=== PATIENT | female | born 1930 | race Caucasian/White ===

== ENCOUNTER 2017-12-06 17:28 | Inpatient (IN) | payer OTHER, MEDICARE ==
[~2017-12-06] VITALS: Ht 162.6 cm; Wt 73.5 kg
[~2017-12-06 17:28] MED LIST: ADULT LOW DOSE81 MG PO; ALEVE220 MG PO; GERITOL COMPLE1 EACH PO; METOPROLOL SUC100 MG PO; OCUVITE TABLET1 EAC1 PO; OMEGA 3 FISH O1 EACH PO; PREDNISONE10 MG PO; VITAMIN D1000 UNI1 PO
--- OUTSIDE RECORDS SUMMARY | 2017-12-06 17:38 | XMS ---
Demographics + + + | Address | [address] | | | [address] | | | [place] [address] | + + + | Preferred Language | Unknown | + + + | Marital Status | Unknown | + + + | Amish Affiliation | Unknown | + + + | Race | Unknown | + + + | Ethnic Group | Unknown | + + + Author + + + | Author | [facility] | + + + | Organization | [facility] | + + + | Address | [address] | | | [place] [address] | + + + | Phone | | + + + Care Team Providers + + + + | Care Subgrade Roller Operator Name | Role | Phone | + + + + Unavailable | Unavailable | + + + + PROBLEMS + + + + + + + + | Type | Condition | ICD9-CM | [id number] | Onset | Condition | SNOMED | | | | Code | Code | Dates | Status | Code | + + + + + + + + | Problem | Hypertensi | I11.9 | | | Active | [id number] | | | ve | | | | | | | | arterioscl | | | | | | | | erotic | | | | | | | | cardiovasc | | | | | | | | ular | | | | | | | | disease | | | | | | + + + + + + + + | Problem | Hypertensi | | I10 | | Active | 30782980 | | | on | | | | | | + + + + + + + + | Problem | Carpal | G56.00 | | | Active | 81922464 | | | tunnel | | | | | | | | syndrome | | | | | | + + + + + + + + | Assessment | Blood in | K92.1 | | 16 February, | Active | [id number] | | | stool | | | 2017 | | | + + + + + + + + | Problem | Hyperchole | | E78.0 | | Active | 45292072 | | | sterolemia | | | | | | + + + + + + + + | Problem | Fatigue | | R53.83 | | Active | 64086174 | + + + + + + + + ALLERGIES + + + + +--------+ | Substance | Reaction | Event Type | Date | Status | + + + + +--------+ | Lisinipril | cough | Drug Allergy | February, | Active | + + + + +--------+ | Morphine | stomach hurts | Drug Allergy | February, | Active | | Sulfate | | | | | + + + + +--------+ | Meloxicam | hives | Drug Allergy | February, | Active | + + + + +--------+ | Lipitor | muscle ache | Drug Allergy | February, | Active | + + + + +--------+ | Hydrochlorothia | nausea | Drug Allergy | February, | Active | | zide | | | | | + + + + +--------+ | Fosamax | Nausea | Drug Allergy | February, | Active | + + + + +--------+ SOCIAL HISTORY No smoking Hx information available PLAN OF CARE + +---------+ | Activity | Details | + +---------+ +---+ | | +---+ + + + | Pending Test | CBC | + + + | | prn,Reason: | + + + VITAL SIGNS + + + + | Height | 64 in | 2017-03-07 | + + + + | Weight | 158.7 lbs | 2017-03-07 | + + + + | BMI | 27.24 kg/m2 | 2017-03-07 | + + + + | Temperature | 98.2 degrees Fahrenheit | 2017-03-07 | + + + + | Heart Rate | 77 /min | 2017-03-07 | + + + + | Blood pressure systolic | 149 mm Hg | 2017-03-07 | + + + + | Blood pressure diastolic | 58 mm Hg | 2017-03-07 | + + + + MEDICATIONS + + + + +--------+ + +--------+ | Medicati | Instruct | Dosage | Frequenc | Start | End Date | Duration | Status | | on | ions | | y | Date | | | | + + + + +--------+ + +--------+ | Metoprol | | TAKE 1 | | | | 90 | Active | | ol | | TABLET | | | | | | | Succinat | | BY MOUTH | | | | | | | e ER 100 | | EVERY | | | | | | | | | DAY | | | | | | + + + + +--------+ + +--------+ | Vitamin | Orally | 1 | 24h | | | | Active | | D 1000 | Once a | capsule | | | | | | | UNIT | day | | | | | | | + + + + +--------+ + +--------+ | Centrum | | | | | | | Active | | Silver | | | | | | | | | Adult | | | | | | | | | 50+ | | | | | | | | + + + + +--------+ + +--------+ | Krill | | | | | | | Active | | Oil | | | | | | | | | [place]-3 | | | | | | | | | 300 MG | | | | | | | | + + + + +--------+ + +--------+ | Ocuvite | | | | | | | Active | | Adult | | | | | | | | | 50+ | | | | | | | | + + + + +--------+ + +--------+ | Aspirin | Orally | 1 tablet | 24h | | | 30 | Active | | 81 MG | Once a | | | | | day(s) | | | | day | | | | | | | + + + + +--------+ + +--------+ RESULTS No Results PROCEDURES + + + + + | Procedure | Date Ordered | Related Diagnosis | Body Site | + + + + + | Office Visit, Est | March 07, 2017 | | | | Pt., Level 3 | | | | + + + + + IMMUNIZATIONS No Known Immunizations"
--- OUTSIDE RECORDS SUMMARY | 2017-12-06 17:38 | XMS ---
Demographics + + + | Address | [address] | | | [address] | | | [place] [address] | + + + | Preferred Language | Unknown | + + + | Marital Status | Unknown | + + + | Anglican Affiliation | Unknown | + + + | Race | Unknown | + + + | Ethnic Group | Unknown | + + + Author + + + | Author | [facility] | + + + | Organization | [facility] | + + + | Address | [address] | | | [place] [address] | + + + | Phone | | + + + Care Team Providers + + + + | Care Welder Name | Role | Phone | + + + + Unavailable | Unavailable | + + + + PROBLEMS +---------+ + + +--------+ + + | Type | Condition | ICD9-CM | [id number] | Onset | Condition | SNOMED | | | | Code | Code | Dates | Status | Code | +---------+ + + +--------+ + + | Problem | Hypertensi | I11.9 | | | Active | [id number] | | | ve | | | | | | | | arterioscl | | | | | | | | erotic | | | | | | | | cardiovasc | | | | | | | | ular | | | | | | | | disease | | | | | | +---------+ + + +--------+ + + | Problem | Hypertensi | | I10 | | Active | 71076973 | | | on | | | | | | +---------+ + + +--------+ + + | Problem | Carpal | G56.00 | | | Active | 49946737 | | | tunnel | | | | | | | | syndrome | | | | | | +---------+ + + +--------+ + + | Problem | Hyperchole | | E78.0 | | Active | 61286606 | | | sterolemia | | | | | | +---------+ + + +--------+ + + | Problem | Fatigue | | R53.83 | | Active | 41597460 | +---------+ + + +--------+ + + ALLERGIES Unknown Allergies SOCIAL HISTORY No smoking Hx information available PLAN OF CARE VITAL SIGNS MEDICATIONS Unknown Medications RESULTS No Results PROCEDURES No Known procedures IMMUNIZATIONS No Known Immunizations"
--- OUTSIDE RECORDS SUMMARY | 2017-12-06 17:38 | XMS ---
Demographics + + + | Address | [address] | | | [address] | | | [place] [address] | + + + | Preferred Language | Unknown | + + + | Marital Status | Unknown | + + + | Congregational Affiliation | Unknown | + + + | Race | Unknown | + + + | Ethnic Group | Unknown | + + + Author + + + | Author | [facility] | + + + | Organization | [facility] | + + + | Address | [address] | | | [place] [address] | + + + | Phone | | + + + Care Team Providers + + + + | Care Bag Making Machine Operator Name | Role | Phone | + + + + Unavailable | Unavailable | + + + + PROBLEMS +---------+ + + +--------+ + + | Type | Condition | ICD9-CM | [id number] | Onset | Condition | SNOMED | | | | Code | Code | Dates | Status | Code | +---------+ + + +--------+ + + | Problem | Hypertensi | I11.9 | | | Active | [id number] | | | ve | | | [...] | | I10 | | Active | 45031311 | | | on | | | | | | +---------+ + + +--------+ + + | Problem | Carpal | G56.00 | | | Active | 72099739 | | | tunnel | | | | | | | | syndrome | | | | | | +---------+ + + +--------+ + + | Problem | Hyperchole | | E78.0 | | Active | 52270305 | | | sterolemia | | | | | | +---------+ + + +--------+ + + | Problem | Fatigue | | R53.83 | | Active | 02680902 | +---------+ + + +--------+ + + ALLERGIES + + + + +--------+ | Substance | Reaction | Event Type | Date | Status | + + + + +--------+ | Lisinipril | cough | Drug Allergy | Jul, | Active | + + + + +--------+ | Morphine | stomach hurts | Drug Allergy | Jul, | Active | | Sulfate | | | | | + + + + +--------+ | Meloxicam | hives | Drug Allergy | Jul, | Active | + + + + +--------+ | Lipitor | muscle ache | Drug Allergy | Jul, | Active | + + + + +--------+ | Hydrochlorothia | nausea | Drug Allergy | Jul, | Active | | zide | | | | | + + + + +--------+ | Fosamax | Nausea | Drug Allergy | Jul, | Active | + + + + +--------+ SOCIAL HISTORY Never Assessed PLAN OF CARE + +---------+ | Activity | Details | + +---------+ +---+ | | +---+ + + + | Follow Up | 6 Months Reason:null | + + + VITAL SIGNS + + + + | Height | 64 in | 2017-07-25 | + + + + | Weight | 162.5 lbs | 2017-07-25 | + + + + | BMI | 27.89 kg/m2 | 2017-07-25 | + + + + | Heart Rate | 65 /min | 2017-07-25 | + + + + | Blood pressure systolic | 177 mm Hg | 2017-07-25 | + + + + | Blood pressure diastolic | 60 mm Hg | 2017-07-25 | + + + + MEDICATIONS + [...] | | | Active | | D 2000 | Once a | capsule | | [...] | TAKE 1 | | | | | Active | | ol | | [...] | | | | | | | [place]-3 | | | | | | | | | 300 MG | | | | | | | | + + + + +--------+ + +--------+ | Flexeril | | 1 tab(s) | | | | | Active | | 5 mg | | | | | | | | + + + + +--------+ + +--------+ RESULTS No Results PROCEDURES + + +--------+ + | Procedure | Date Ordered | Result | Body Site | + + +--------+ + | Influenza Medicare | Jul 25, 2017 | | | + + +--------+ + | ADMN FLU VAC | Jul 25, 2017 | | | + + +--------+ + IMMUNIZATIONS + + + + + | Vaccine | Route | Administration Date | Status | + + + + + | Influenza Medicare | IM Intramuscular | Jul 25, 2017 | Administered | + + + + + MEDICAL (GENERAL) HISTORY + + + + | Type | Description | Date | + + + + | Medical History | Allergies | | + + + + | Medical History | Arthritis | | + + + + | Medical History | 07/2009 ? | | + + + + | Medical History | Hypertension | | + + + + | Medical History | hx/o GERD | | + + + + | Medical History | Anxiety | | + + + + | Medical History | | | + + + + | Medical History | Vitamin D deficiency | | + + + + | Medical History | Spinal stenosis L4-5, | | | | moderate | | + + + + | Medical History | LBBB 2008 | | + + + + | Medical History | Osteopenia @ high risk of | | | | hip fx - fosamax started | | | | 02/11/13 - d/c'ed after 3 | | | | doses due to GI side | | | | effect. | | + + + + | Medical History | Macular degeneration | | + + + + | Medical History | Spinal Stenosis Lumbar | | | | region | | + + + + | Medical History | Estimated dietary calcium | | | | intake 1200mg/day 02/11/13 | | + + + + | Medical History | [place] general information | | | | handout and home safety | | | | questionnaire provided | | | | 02/11/13 - score 6 | | + + + + | Medical History | FRAX calculation: 10 yr | | | | probability of major | | | | osteoporotic fx 13%, hip fx | | | | 3.2% pt at high risk for | | | | hip fx 02/11/13 | | + + + + | Surgical History | Cholecystectomy | 1993 | + + + + | Surgical History | T&A | | + + + + | Surgical History | Colonoscopy | 2005 | + + + + | Surgical History | R carpal tunnel repaired | 07/2010 | + + + + | Surgical History | Mammogram | 10/10/14 | + + + + | Surgical History | Orthopedic consult, Dr Puckett | 09/26/11 | | | re:Lumbar radiculopathy | | + + + + | Surgical History | MRI Lumbar spine - L4-5 | 10/10/11 | | | moderate stenosis | | + + + + | Surgical History | DEXA femoral T-score -1.3 | 11/21/11 | + + + + | Surgical History | Eye exam | 05/2013 | + + + + | Surgical History | Cataract surgery b/l | 05/2014 | + + + + | Hospitalization History | [facility] dx: chest pain | 12/11- | + + + + | Hospitalization History | [facility] ER re: back pain | 03/29/16 | + + + +"
--- NOTE | 2017-12-06 21:06 | NUR ---
BP ELEVATED, PT PAIN INCREASED DURING THE TRANSFER FROM STRETCHER TO HOSP. BED. LOPRESSOR ORDERED BY DR. WHITE. IF PRESSURE CONTINUES TO BE ELEVATED, WILL NOTIFY DR. WHITE.
--- NOTE | 2017-12-06 21:13 | NUR ---
PT TRANSFERED FROM ED AT 2014, VIA STRETCHER TO ROOM 112. ALERT AND ORIENTATED. FELL OUT AT [employer], FX LEFT HIP. NPO AFTER MIDNIGHT, HAS TRAMMELL WITH LIGHT YELLOW URINE. PT ATE A SANDWICH, DRANK WATER, MILK AFTER SHE ARRIVED TO FLOOR. HAS UPPER DENTURES, GLASSES. MACULAR DEGENATION WORSE IN LEFT EYE THAN RIGHT. HAD AN "INJECTION" YESTERDAY [facility] FRIENDS IN ROOM WITH PT.
--- NOTE | 2017-12-06 21:40 | NUR ---
RESUMED PATIENT CARE FROM BANDAR ZEE RN. PATIENT REPOSITIONED IN BED FOR COMFORT. PATIENT IS REQUESTING PAIN MEDICATION FOR 8/10 LEFT HIP PAIN. PATIENT GIVEN PRN PAIN MEDICATION PER ORDER. PAIN MEDICATION DILUTED IN 20ML'S AND RAN ON THE PUMP OVER 5 MINUTES. PATIENT INTAKE ASSESMENT COMLETED. PATIENTS SON IS AT THE BEDSIDE. ALL QUESTIONS ANSWERED. PATIENT DENIES ANY NEEDS. PATIENT EDUCATED ON THE USE OF THE CALL LIGHT.
--- NOTE | 2017-12-06 22:10 | NUR ---
PATIENT CALLED AND HAD A BOUT OF EMESIS. PATIENT STATED "I JUST FELT LIKE I NEEDED TO BELCH". PATIENT DESCRIBES HER ABD PAIN AN "ACHE AND A TIGHT BAND". PATIENT GIVEN PRN ZOFRAN. PATIENT ALSO STATED "THIS IS HIM I FEEL IF I GET MORPHINE" PLACED A CALL TO DR. ANDERSON ABOUT PATIENTS EMESIS AND CONCERN FOR PAIN MEDICATION. NO NEW ORDERS AT THIS TIME. PATIENTS GOWN AND BEDDING CHANGED. PATIENT DID NOT TOLERATE ACTIVITY WELL. PATIENT GIVEN NEW EMESIS BAG. PATIENTS SON HAS LEFT. PATIENT HAS A COOL RAG ON HER HEAD.
--- NOTE | 2017-12-06 22:45 | NUR ---
PATIENT IS RESTING IN BED. ALL LIGHTS ARE OFF. SCDS APPLIED. PATIENT REFUSES TEDHOSE AT THIS TIME. PATIENT RATES PAIN AT A 4/10 AT THIS TIME. PATIENT STATED "MY STOMACH IS STARTING TO FEEL BETTER". ICE APPLIED TO LEFT HIP. NO FURTHER NEEDS NOTED.
--- NOTE | 2017-12-06 22:47 | NUR ---
HELPED JOSE MENDEZ CHANGE BED SATURATED WITH VOMIT. GAVE PT A COLD RAG, ICE FOR HER HIP, AND CHANGED HER GOWN. BEDSIDE TABLE AND CALL LIGHT WITHIN REACH.
--- NOTE | 2017-12-07 00:40 | NUR ---
PATIENT CALLED AND REQUESTED PAIN MEDICATION. PATIENT GIVEN PRN PAIN MEDICATION. PATIENT GIVEN IV DILAUDID AT 0.25ML, DILUTED IN 20ML'S OF NORMAL SALINE. PATIENTS PAIN MEDICATION RAN ON THE PUMP OVER 10MINUTES. PATIENT REPOSTIONED IN BED. PATIENT DENIES ANY NAUSEA AT THIS TIME. NO FURTHER NEEDS NOTED. CALL LIGHT IN REACH.
--- NOTE | 2017-12-07 00:54 | NUR ---
PATIENT IS RESTING IN BED WITH EYES CLOSED. RR17. CALL LIGHT IN REACH.
--- NOTE | 2017-12-07 01:37 | NUR ---
PATIENT CALLED AND REPORTED TO STAFF THAT SHE WAS FEELING "SICK TO HER STOMACH". PATIENT GIVEN PRN ZOFRAN PER ORDER. PATIENT DID HAVE ABOUT 10ML OF EMESIS. PATIENT RATES PAIN AT A 4/10. DENIES THE NEED FOR PAIN MEEDICATION AT THIS TIME. NO FURTHER NEEDS NOTED. CALL LIGHT IN REACH.
--- NOTE | 2017-12-07 01:45 | NUR ---
VITALS AND I&OS DONE AND CHARTED. BEDSIDE TABLE AND CALL LIGHT WITHIN REACH. PT NEEDS NOTHING ELSE AT THIS TIME.
--- NOTE | 2017-12-07 01:49 | NUR ---
PT BP 158/44, HAS BEEN MED FOR PAIN SINCE ADMISSION.
--- NOTE | 2017-12-07 02:33 | NUR ---
PATIENT PLACED ON PULSE OX AFTER RECEIVING PRN PAIN MECIATION. OXYGEN SATURATION IS 87%. PATIENT PLACED ON 1L VIA NC. PATIENT IS RESTING IN BED. PATIENT DENIES ANY NAUSEA. PATIENT RATES PAIN AT A 2/10 AND DENIES THE NEED FOR PAIN MEDICAITION AT THIS TIME.
--- NOTE | 2017-12-07 04:27 | NUR ---
PATIENT IS RESTING IN BED WITH EYES CLOSED. PULSE OX READINGS ARE WNL. CALL LIGHT IN REACH.
--- NOTE | 2017-12-07 05:10 | NUR ---
PATIENT RESTED DURING THE LATER PART OF THE SHIFT. PATIENT HAS BEEN NPO SINCE MIDNIGHT. PATIENT HAS SCDS ON RIGHT LEG ONLY, REFUSED TO WEAR ON ON HER LEFT LEG. PATIENT REFUSED TEDHOSE AT THIS TIME. PATIENT RECEIVED X2 PRN ZOFRAN FOR NAUSEA. PATIENT DID HAVE 2 EPISODES OF EMESIS RESULTING IN 75ML. PATIENT IS ON PULSE OX AND 1L VIA NC. PATIENT IS AAOX3 AND USES CALL LIGHT APPROPRIATELY.
--- NOTE | 2017-12-07 05:58 | NUR ---
PT IV PUMP ALARMING. PT AWAKE, DENIES NEED FOR PAIN MEDICATION, WELL NO NAUSEA. CALL LIGHT WITHIN REACH.
--- NOTE | 2017-12-07 06:01 | NUR ---
VITALS AND I&OS DONE AND CHARTED. FLUFFED PTS PILLOW. BEDSIDE TABLE AND CALL LIGHT WITHIN REACH.
--- NOTE | 2017-12-07 06:35 | NUR ---
PATIENT IS RESTING IN BED. PATIENTS VITALS TAKEN AND RECORDED. PATIENT RATES PAIN AT A 3/10. PATIENT DENIES THE NEED FOR ANY PAIN MEDICATION AT THIS TIME. PATIENT DENIES ANY NAUSEA. PATIENT REFUSES TO BE REPOSITIONED. PATIENT CONTINUES TO REFUSE TEDHOSE AND TO WEAR HEEL PROTECTORS AND SCDS ON LEFT LEG. PATIENT STATED "ITS JUST TO PAINFUL TO BE MOVED RIGHT NOW" EDUCATED PATIENT ON IMPORTANCE OF THESE INTERVENTIONS. PATIENT CONTINUES TO REFUSE. PATIENT DENIES ANY FURTHER NEEDS AT THIS TIME. CALL LIGHT IN REACH.
--- NOTE | 2017-12-07 07:45 | NUR ---
dr. padilla in room. verbal order for toradol to give now
--- NOTE | 2017-12-07 08:35 | NUR ---
patient pain improved with iv toradol repositioned in bed. washed face and vitals taken. scheduled medication given.
--- NOTE | 2017-12-07 09:56 | NUR ---
GAVE DILAUDID 0.5MG DILUTED IN 20MLS OF WATER. PATIENT RESTING IN BED WITH HOB ELEVATED. CALL LIGHT WITHIN REACH.
--- NOTE | 2017-12-07 10:29 | NUR ---
SON IN ROOM. PATIENT CONTINUES TO HAVE PAIN. PLAN TO GIVE ZOFRAN NOW AND 15 MINUTES LATER GIVEN DILAUID PAIN MEDICATION. PATIENT AGREED WITH INFORMATION.
--- NOTE | 2017-12-07 10:33 | NUR ---
PATIENT CURRENTLY RESTING IN BED. PAIN MEDICATION TAKING EFFECT. PATIENT CURRENT PAIN 12/30. PATIENT NEEDED OXYGEN REPLACED DUE TO OXYGEN LEVEL BEING 89 PERCENT ON RA. PLACED ON 2 L. PATIENT LEVEL WENT TO 95 PERCENT. PATIENT ABLE TO SLEEP AT THIS TIME.
[2017-12-07] MEDS ORDERED: VITAMIN B-12100 MCG PO (11:08)
--- NOTE | 2017-12-07 11:09 | NUR ---
MED REC COMPLETE WITH SAFEWAY REFILL HISTORY AND PATIENT INTERVIEW.
--- NOTE | 2017-12-07 11:28 | NUR ---
THE NURSE AND I DID A SURGICAL WIPE DOWN. NEW GOWN. A [place] HOSE ON RIGHT FOOT ALONG WITH SCD. PATIENT IS NOW RESTING.
--- NOTE | 2017-12-07 11:33 | NUR ---
SURGICAL WIPES DONE. PATIENT TOLERATED WELL. PAIN OKAY AT THIS TIME. PATIENT REFUSED TO REPOSITION DUE TO FEAR OF INCREASE PAIN. [place] HOSE PLACED ON L LEG. PATIENT REFUSING FOR ANY SCD OR [place] TO BE PLACED ON R SIDE. ICE APPLLIED. UPDATED PATIENT ON PLAN FOR SURGERY AT 1500
--- NOTE | 2017-12-07 11:53 | NUR ---
PT RRESTING IN BED. SHE SEEMED ALERT AND RESPONSIVE. LET ME KNOW THAT SHE IS SCHEDULED TO HAVE SURGERY THIS AFTERNOON. NO PAIN, PT ACTED COMFORTABLE. REQUESTED PRAYER, WILL FOLLOW NEEDED
--- NOTE | 2017-12-07 13:15 | NUR ---
PATIENT UPDATED WITH PLAN TO GO TO SURGERY IN 15 MINUTES. UPDATED FAMILY AND PAITENT ABOUT PLAN.
--- NOTE | 2017-12-07 14:00 | NUR ---
patient to surgery. family went down with patient to day surgery
--- NOTE | 2017-12-07 17:32 | NUR ---
12/07/17 1732 Reema Pepper 1723-PATIENT ARRIVED TO PACU ON 6L MASK O2 SAT 94% PATIENT REACTIVE TO VOICE OPENS EYES, SPINAL LEVEL T10. LEFT HIP DRESSING CDI. PILLOW IN PLACE. SR WITH L BBB AND 1ST DEGREE AVB 1731-XRAY CALLED FOR PELVIS XRAY DR. ANDERSON AT BEDSIDE. PATIENT DROWSY DENIES PAIN OR NAUSEA.
--- NOTE | 2017-12-07 18:20 | NUR ---
PATIENT TO THE FLOOR FROM PACU. PATIENT PLACED ON 4 L VIA OXY MASK. PATIENT UNABLE TO KEEP SATURATIONS UP WITH NC. VITALS TAKEN. PATIENT ENCOURAGED TO COUGH AND DEEP BREATH. LUNG SOUNDS DIMINISHED. L HIP HAS GAUZE DRESSING IN PLACE. SMALL AMOUNT OF DRAINAGE PRESENT. KRYO CUFF IN PLACE. SCDS AND TEDS IN PLACE. FAMILY AT BEDSIDE. WARM BLANKETS PLACED ON PATIENT DUE TO PATIENT C/O BEING COLD. PATIENT IS ABLE TO WIGGLE TOES. PATIENT REMAINS NUMB IN LOWER EXTREMITIES. TRAMMELL IN PLACE.
--- NOTE | 2017-12-07 20:00 | NUR ---
RECEIVED REPORT AT 1900. FOUND PT IN BED SOMEWHAT DROUSY FROM SX WITH FAMILY AT BEDSIDE. PT COMPLAINED OF PAIN BEING AN 8/10. DRESSING LOOKED C/D/I. NO OTHER CONCERNS AT THAT TIME.
--- NOTE | 2017-12-07 20:11 | NUR ---
medicated with toradol 15mg iv, c/o hip pain.
--- NOTE | 2017-12-07 22:00 | NUR ---
POST OP V/S DONE AND WDL, ALL LOBES ARE CLEAR, PAIN SO FAR IS NO WELL CONTROLLED WITH AVAILABLE PRN PAIN MEDS. RASH IS AWARE. PT HAD N/V X1 SO FAR. DRESSING ON LEFT HIP IS C/D/I WITH SOME EDEMA. NO BRUISING SO FAR NOTED. WILL CONTIUNUE TO MONITOR PAIN CONTROL AND N/V.
--- NOTE | 2017-12-08 | NUR ---
PT IS SLEEPING AT THIS TIME. PT REFUSED ONE TIME ORDER FOR ZOFRAN AFTER HAVING ANOTHER EPISODE OF VOMITING.
--- NOTE | 2017-12-08 01:39 | NUR ---
VITALS AND I&OS DONE AND CHARTED. PT IS SLEEPING. BEDSIDE TABLE AND CALL LIGHT IN REACH.
--- NOTE | 2017-12-08 02:00 | NUR ---
PT IS STILL SLEEPING. WILL DO V/S FOR MEDS SOON.
--- NOTE | 2017-12-08 04:21 | NUR ---
IV PUMP IS UPDATING AND IS NOT PUMPING IV FLUIDS AT THIS TIME. WILL START IV FLUIDS AGAIN WHEN UPDATE IS DONE. PT DENIES PAIN AT THIS TIME. ALL LOBES ARE CLEAR, LEFT HIP DRESSING IS C/D/I, THERE IS MILD EDEMA ON LEF HIP. PT IS ABLE TO WIGGLE HER TOES AND HAS NO NUMBNESS OR TINGLING AT THIS TIME.
--- NOTE | 2017-12-08 05:37 | NUR ---
AT START OF SHIFT PAIN CONTROL WAS AN ISSUE. IV TORADOL DID NOT SUFFICE. ZOFRAN 4MG IV WAS GIVEN BEFORE GIVING DILAUDED AND PT STILL HAD EMESIS X2. PT REFUSED 2ND DOSE OF ZOFRAN IV 4MG AND HER N/V AND HER PAIN HAVE SUBSIDED SINCE. A DIFFERENT SOLUTION NEEDS TO BE FOUND THIS MORNIG IN REGARDS TO HER PAIN CONTROL. URINE OUTPUT HAS BEEN BETTER THIS SHIFT. DRESSING ON LEFT HIP IS C/D/I, LEFT DORSALIS PEDIS PULSE IS +2 WITH SOME EDEMA PRESENT. TOES ARE WARM TO TOUCH. LEFT HIP HAS SOME EDEMA WELL. NO BRUISING NOTED YET. ALL LOBES ARE CLEAR, V/S OVERALL HAVE BEEN WDL.
--- NOTE | 2017-12-08 07:08 | EKG ---
[facility] [address] [facility] [place], [place] [address] Signed Sinus rhythm with 1st degree AV block Left bundle branch block Abnormal ECG No previous ECGs available Confirmed by ALEJANDRA WHITE MD ([id number]) on 12/08/2017 7:08:30 AM Electronically Signed By: ALEJANDRA WHITE MD 12/08/17 0708 PATIENT NAME: KELVIN LIN Electrocardiogram DATE OF : [birth year] PHYSICIAN: ALEJANDRA WHITE MD REPORT #: [id number] REPORT IS CONFIDENTIAL AND NOT TO BE RELEASED WITHOUT AUTHORIZATION
--- NOTE | 2017-12-08 08:17 | NUR ---
PATIENT SAT UP IN BED. PATIENT FEELING VERY NAUSEATED. ZOFRAN GIVEN. PATIENT HAVING SEVERAL DRY HEAVING EPISODES. WET CLOTH PUT ON FOREHEAD. PATIENT SAT UP. FOOD TAKEN OUT OF ROOM AT THIS TIME. PATIENT CONTINUES TO BE ON 2 L VIA NC. SATING WELL. LUNGS ARE CLEAR BUT DIMINISHED. WILL ENCOURAGE IS WHEN NOT FEELING SICK. L HIP IS C/D/I. KRYO IN PLACE. TEDS IN PLACE. HEEL PROTECTORS PLACE ON. PATIENT EDEMA TO LOWER L ANKLE. PULSES PALPATED. TOES ARE WARM TO TOUCH. PAIENT SITTING UP AT THIS TIME.
--- NOTE | 2017-12-08 08:57 | NUR ---
PATIENT RESTING AT THIS TIME. RR EVEN UNLABORED. SATING WELL. LETTING PATIENT REST AT THIS TIME.
--- NOTE | 2017-12-08 09:05 | OR ---
[facility] [address] [place], [place] [address] Signed DATE OF OPERATION: 12/07/2017 SURGEON: Vilma Batista MD PREOPERATIVE DIAGNOSIS: Femoral neck fracture displaced, left hip. POSTOPERATIVE DIAGNOSIS: Femoral neck fracture displaced, left hip. PROCEDURE PERFORMED: Left bipolar hemiarthroplasty. SURGEON: Vilma Batista MD. FEED RESEARCH AIDE: Marysol Lee PA-C. Marysol was present for the entire procedure, was critical for positioning, retracting, and wound closure. ANESTHESIA: Spinal. BLOOD LOSS: 200 mL. IMPLANTS: Kimball Omnifit size #7 stem and 44 mm bipolar. BRIEF HISTORY: Janey is an 87-year-old lady who suffered a ground level fall yesterday at the [facility]. She had hip pain, was transported to emergency Department, where radiographs showed a displaced femoral neck fracture. Risks and benefits of operative treatment were discussed with her and she elected to proceed. DESCRIPTION OF PROCEDURE: Once consent was obtained, she was taken to the operating room. After adequate anesthesia, she was placed in right lateral decubitus position. All downside pressure points well padded and axillary roll was placed. The hip was prepped and draped in a standard sterile fashion. A 5-inch incision was centered over the trochanter taken Electronically Signed By: VILMA BATISTA MD 12/08/17 0905 PATIENT NAME: JANEY LIN OPERATIVE REPORT DATE OF : [birth year] PHYSICIAN: VILMA BATISTA MD REPORT #: [id number] REPORT IS CONFIDENTIAL AND NOT TO BE RELEASED WITHOUT AUTHORIZATION [facility] [address] [place], [place] [address] Signed through skin and subcutaneous tissue. The IT band was divided longitudinally. The vastus lateralis was divided from the greater trochanter distally and elevated in a subperiosteal manner to the lesser trochanter. The gluteus medius was split bluntly. Gluteus minimus and capsule were split sharply from the trochanter to the acetabular rim and peeled off the anterior neck. The fracture was easily identified and was truly displaced. It did have a small extension down into the calcar. The femoral head was removed with some difficulty. Once it was completely removed, it was taken back table, measured to 44. A 44 trial did fit well on the acetabulum. Attention was then turned to proximal femur, which was opened using the rowanie cutter, followed by the Eyad awl, sequential broaching up to 7 with 7 left in position was undertaken. The 7 was felt to be quite well fitting. We obtained a 7 stem and impacted until it was well seated at the proper level. A -3 head and 44 bipolar rim were impacted onto the stem. The hip was then reduced. Leg lengths were found to be equal and she had good range of motion. The wound was copiously irrigated with antibiotic solution throughout the procedure. Total of 2-3 L of antibiotic irrigation was used. Periarticular soft tissues were injected with 60 mg Toradol and ropivacaine mixture. The capsule was then repaired using #1 Vicryl. The vastus and IT band layers were closed independently using #2 Stratafix and 0 Stratafix for the subcu and linden for the skin. Wound was dressed with Mepilex Ag dressing and she was placed in the abduction brace, taken to recovery room in satisfactory condition. All sponge, needle, and instrument counts were correct. Vilma Batista MD BA/MODL /[id number] Electronically Signed By: VILMA BATISTA MD 12/08/17 0905 PATIENT NAME: JANEY LIN OPERATIVE REPORT DATE OF : [birth year] PHYSICIAN: VILMA BATISTA MD REPORT #: [id number] REPORT IS CONFIDENTIAL AND NOT TO BE RELEASED WITHOUT AUTHORIZATION
--- NOTE | 2017-12-08 09:24 | NUR ---
UPDATED DR. ANDERSON ABOUT PATIENTS NAUSEA. ROUNDED IN ROOM. NEW ORDERS FOR MEDICATIONS PLACED.
--- NOTE | 2017-12-08 10:00 | NUR ---
called and updated anethesia provider about new order for femeral block. updated family and patient. vu robertson at this time.
--- NOTE | 2017-12-08 10:39 | NUR ---
bakari repositioned in bed. patient woke up with movement. patient stating that she is feeling okay. very bright eyed. patient stating pain okay at this time. no nausea at this time. updated patient to please call if small amount of nausea occurs. patient agreed to let me know. updated about plan to do femeral block for pain management. holding ailyn at this time.
--- NOTE | 2017-12-08 10:53 | NUR ---
ANESTHESIA IN ROOM TO DO BLOCK
--- NOTE | 2017-12-08 12:14 | NUR ---
PATIENT WAS ABLE TO TOLERATED A COUPLE BITES OF WHEAT TOAST AND BROTH. NO NAUSEA AT THIS TIME. EDUCATED ABOUT THE GOING SLOW AND NOT OVER DOING IT WITH FOOD. PATIENT TOLERATED INFORMATION WELL.
--- NOTE | 2017-12-08 12:43 | NUR ---
VERA IN ROOM TO START NEW IV WITH US. UNABLE TO GET NEW LINE. OLD ONE REMAINS WORKING WILL KEEP IV. FAMILY IN ROOM AT THIS TIME.
--- NOTE | 2017-12-08 12:45 | NUR ---
FILLED PATIENT'S CRYO AT 1209.
--- NOTE | 2017-12-08 13:15 | NUR ---
PATIENT CONTINUES TO DO WELL. NO NAUSEA AT THIS TIME. PATIENT IS TOLERATING YOGURT AT THIS TIME. NO PAIN AT THIS TIME. WILL CONTINUE TO MONITOR. BL OCK IN WORKING ORDER. PATIENT IS ABLE TO MOVE HER LOWER ABLE TO WIGGLE TOES. PLAN TO GET UP TO CHAIR AT 1500 WITH PT
--- NOTE | 2017-12-08 13:18 | NUR ---
PT SLEEPING, FAMILY IN . THEY MENTIONED SHE HAD A ROUGH NIGHT, FOLLOWING PT'S SURGERY YESTERDAY AFTERNOON. WILL CHECK BACK LATER
--- NOTE | 2017-12-08 13:57 | NUR ---
VITALS TAKEN. PATIENT REMAINS WITH NO NAUSEA AT THIS TIME. SCHEDULED MEDICATIONS GIVEN. PLAN TO PREMEDICATE WITH ANTINAUSEA MEDS AND PAIN MEDICATIONS IN 15MINUTES. SON IN ROOM. HIP ABD PILLOW IN PLACE. SCDS AND TEDS IN PLACE. KRYO FILLED WITH ICE.
--- NOTE | 2017-12-08 14:00 | NUR ---
SPOKE WITH PATIENT AND SON ISIDRO IN ROOM. PATIENTS PREFERENCE FOR DISCHARGE IS TO RETURN HOME INDEPENDENTLY SOON POSSIBLE. PATIENT DOES NOT WANT TO GO TO LOCAL SENIOR CARE. SON ISIDRO STATES HE WILL BE ABLE TO TAKE HER HOME WITH THEM WHEN SHE GETS TO A POINT WHERE SHE CAN GET AROUND WITH THE WALKER AND UP AND DOWN WITH 1 ASSIST. HE STATES HIS HOME IS HANDICAP ACCESSIBLE, TOO. HER APARTMENT ALSO IS 1 LEVEL AND NO STEPS IN. WE DISCUSSED POSSIBLE TRANSITIONAL CARE BED STATUS WHEN DR ANDERSON DEEMS SHE IS READY. THEY ARE IN AGREEMENT WITH THIS PLAN. WE DISCUSSED MEDICARE COVERAGE AND ALSO THAT SHE WILL NEED TO PROGRESS SLOWLY TO REMAIN IN THE PROGRAM. AGAIN THEY STATE UNDERSTANDING. DR WHITE UPDATED.
--- NOTE | 2017-12-08 15:15 | NUR ---
pt in room. plan to ambulate patient to chair
--- NOTE | 2017-12-08 15:47 | NUR ---
patient tolerated sitting on the edge of bed with physical therapy assist. patient was able to sit to stand x 5 times. patient was able to march in place a couple steps, but her right knee felt weak and her block in her l upper leg making her l upper leg numb. patient in very good spirts and excited to work with pt. patient having no nausea and no pain at this time. patient ordered dinner. requesitng to sit on edge of bed at this time. son in room. patient has call light with in reach. plan to go back to bed with dinner gets here.
--- NOTE | 2017-12-08 16:08 | NUR ---
patient assisted back to bed. tolerated well. assisting patient with brushing teeth and brushing hair. tolerating well.
--- NOTE | 2017-12-08 17:10 | NUR ---
ROUNDED WITH DR. WHITE IN ROOM. PATIENT TOLERATING DINNER WELL. NO NAUSEA AT THSI TIME. NO PAIN. WILL CONTINUE TO MONITOR.
--- NOTE | 2017-12-08 17:12 | NUR ---
PATIENT DID VERY WELL TODAY. FEMORAL BLOCK WAS PLACED DUE TO PATIENT BEING UNABLE TO TOLERATE PAIN MEDICATION WITHOUT NAUSEA. SINCE THE BLOCK HAS BEEN PLACED PATIENT HAS HAD NO PAIN AND NO NAUSEA. HAVE TREATED FOR NAUSEA WITH ZOFRAN X2 TO KEEP NAUSEA MEDICATION IN HER SYSTEM. IF TO GIVE ANY PAIN MEDICATION MUST GIVEN NAUSEA MEDICATION 15 MINUTES BEFORE PAIN MEDICATIONS. WORKED WITH PT TODAY. WAS ABLE TO STAND AT BEDSIDE. UNABLE TO MOVE TO CHAIR WITH BLOCK IN PLACE. TRAMMELL CATH IN PLACE. QS UOP.
--- NOTE | 2017-12-08 20:00 | NUR ---
RECEIVED REPORT AT 1900. FOUND PT IN BED WITH FAMILY AT BEDSIDE. PT DENIED PAIN AND N/V AT THAT TIME.
--- NOTE | 2017-12-08 20:10 | NUR ---
VITALS AND I&OS DONE AND CHARTED. FRESH WATER GIVEN. BEDSIDE TABLE AND CALL LIGHT IN REACH, PER PT REQUEST I GOT HER A WARM BLANKET . PT NEEDS NOTHING ELSE AT THIS TIME.
--- NOTE | 2017-12-08 21:59 | NUR ---
charge nurse rounds - Pt in bed, O2 in place, IVf infusing, f/c patent, foam leg separator, scds, damian hose, in place. Stated better pain control than yesterday. no requests, no c/o pain
--- NOTE | 2017-12-08 22:00 | NUR ---
V/S ARE WDL OVERALL, PT HOWEVER DOES HAVE A TEMP OF 99.1. ALL LOBES ARE CLEAR, DRESSING ON LEFT HIP IS C/D/I, EDEMA ON LEFT HIP IS UNCHANGED. THERE IS SOME SLIGHT BRUISING ON THE HIP NOW. FLEFT LEG AND FOOT EDEMA IS +2 WITH PEDAL PULSE +1, TOES ARE WARM TO TOUCH AND PT DENIES NUMBNESS. URINE OUT PUT IS BETTER WELL. BOWEL TONES ARE PRESENT. NO NEW ISSUES NOTED SO FAR. PT STILL DENIES PAIN AND N/V
--- NOTE | 2017-12-09 | NUR ---
PT IS SLEEPING AT THIS TIME.
--- NOTE | 2017-12-09 01:25 | NUR ---
VITALS AND I&OS DONE AND CHARTED. FRESH WATER GIVEN. BEDSIDE TABLE AND CALL LIGHT WITHIN REACH. PT NEEDS NOTHING ELSE AT THIS TIME.
--- NOTE | 2017-12-09 02:00 | NUR ---
PT IS AWAKE IN BED. NO NEEDS AT THIS TIME
--- NOTE | 2017-12-09 02:48 | NUR ---
VITALS AND I&OS DONE AND CHARTED. CRYO FILLED WITH MORE ICE. BEDSIDE TABLE AND CALL LIGHT WITHIN REACH. INFORMED JOSE CHAPMAN OF ELEVATED B\P
--- NOTE | 2017-12-09 04:14 | NUR ---
PT IS SLEEPING AT THIS TIME.
--- NOTE | 2017-12-09 04:56 | NUR ---
OVERALL PT HAD AN UNEVENTFUL NIGHT. PT NEEDED SOMETHING FOR SLEEP AND MD JAMES ADDED 5MG SONATA TO EMAR. ZOFRAN PRN AND TORADOL PRN WERE GIVEN AND SO FAR PT HAS DENIED PAIN AND N/V. ALL LOBES ARE CLEAR AND PT IS ON RA. LEFT HIP DRESSING IS C/D/I, LEFT LEG, ANKLE AND FOOT EDEMA IS +2, PEDIS PULSES ARE +2 AND FOOT IS WARM TO TOUCH. NO NEW CONCERNS AT THIS TIME. V/S SO FAR ARE WDL.
--- NOTE | 2017-12-09 05:36 | NUR ---
VITALS AND I&OS ARE DONE AND CHARTED. FRESH WATER GIVEN. PT NEEDS NOTHING ELSE AT THIS TIME. BEDSIDE TABLE AND CALL LIGHT WITHIN REACH.
--- NOTE | 2017-12-09 08:10 | NUR ---
PT VERY ANXIOUS AND HAS LOTS OF NEEDS THIS MORNING. FIXATED ON NEED TO HAVE A BOWEL MOVEMENT. BP SYSTOLIC 204. IV METOPROLOL GIVEN. CHARGE NURSE INFORMED HOSPITALIST OF HIGH BP AND NEED TO HAVE BM. NEW ORDERS RECEIVED. PT UPSET ABOUT "SCRATCH ON BACK" FROM BEDPAN BEING PLACED. REFUSED TO GET OUT OF BED TO CHAIR THIS MORNING. WANTS TO WAIT UNTIL PHYSICAL THERAPY GETS HER TO THE CHAIR. ANXIOUS FOR BREAKFAST. CRYOCUFF IN PLACE.
--- NOTE | 2017-12-09 11:26 | NUR ---
PT WORKING WITH PHYSICAL THERAPY NOW.
--- NOTE | 2017-12-09 12:08 | NUR ---
PT EATING LUNCH NOW. DISCONTINUED TRAMMELL CATHETER. WILL D/C FLUIDS WHEN LUNCH FINISHED. PT SITTING UP IN CHAIR AFTER PHYSICAL THERAPY.
--- NOTE | 2017-12-09 14:11 | NUR ---
PT VOIDED 25ML ON BSC AT 1330. WILL MONITOR UO. TRAMMELL REMOVED AT 1200.
--- NOTE | 2017-12-09 15:52 | NUR ---
FILLED CRYO AROUND 1400.
--- NOTE | 2017-12-09 17:54 | NUR ---
2PA TO BSC. LEFT HIP DRESSING C/D/I. TORADOL & NUCYNTA X1 TODAY. LOPRESSOR CHANGED TO PO. TRAMMELL REMOVED AT 1200. NO ACTUAL MEASURED VOID YET, BUT HAS URINATED. WORKING WITH PHYSICAL THERAPY. CAN BE NEEDY AT TIMES. NO NAUSEA TODAY. ROOM AIR ALL DAY.
--- NOTE | 2017-12-09 19:00 | NUR ---
IN ROOM FOR REPORT, PT IS AWAKE IN BED. PT DENIES NEEDS AT THIS TIME.
--- NOTE | 2017-12-09 22:10 | NUR ---
ASSISTED PATIENT TO USE THE BEDSIDE COMMODE USING WALKER AND BACK TO BED. SCD, CRYO HEEL PROTECTOR ARE BACK ON. CALL LIGHT WITHIN REACH. NOTIFIED JOSE VO THAT PATIENT WANTS HER NIGHT MEDS. CRYO REFILLED AND ICE WATER REFILLED.
--- NOTE | 2017-12-09 22:15 | NUR ---
ASSESSED PT, SHE STATES PAIN IS 3/10 BUT SHE IS A LITTLE STIFF TODAY AFTER WORKING WITH PT. ADMINISTERED EVENING MEDICATIONS AND PRN MAALOX AND PRN NUSYNTA. PT STATES SHE HAS GOOD FEELING IN HER LEGS NO NUMBNESS OR TINGLING AND NO N/V TODAY. CYROCUFF, AES, SCDS, AND HEEL PROTECTORS ARE IN PLACE. CALL LIGHT IS WITHIN REACH AND PT HAS FRESH WATER AT BEDSIDE.
--- NOTE | 2017-12-09 23:09 | NUR ---
PT IS RESTING WITH EYES CLOSED, RESPIRATIONS EVEN AND NONLABORED. CALL LIGHT IS WITHIN REACH.
--- NOTE | 2017-12-10 01:14 | NUR ---
PT IS RESTING WITH EYES CLOSED, RESPIRATIONS EVEN AND NONLABORED. CALL LIGHT IS WITHIN REACH.
--- NOTE | 2017-12-10 02:47 | NUR ---
PT IS RESTING WITH EYES CLOSED, RESPIRATIONS EVEN AND NONLABORED. CALL LIGHT IS WITHIN REACH.
--- NOTE | 2017-12-10 04:30 | NUR ---
PT UP TO RESTROOM, SHE IS VOIDING QS. PT HAS FRESH WATER AT BEDSIDE AND DENIES PAIN OR FURTHER NEEDS AT THIS TIME. DRESSING REMAINS CDI.
--- NOTE | 2017-12-10 04:41 | NUR ---
PT SLEPT WELL THROUGH THE NIGHT ONLY REQUIRING PAIN MEDICINE WITH EVENING MEDS. HER LEFT HIP DRESSING HAS REMAINED CDI, AND SHE IS 1PA WITH WALKER WBAT. PT IS VOIDING QS. IV IS SL BETWEEN ABX INFUSIONS.
--- NOTE | 2017-12-10 06:04 | NUR ---
ADMINISTERED IV ABX, PT DENIES PAIN AND NEEDS AT THIS TIME. CALL LIGHT IS WITHIN REACH.
--- NOTE | 2017-12-10 07:03 | NUR ---
RECIEVED BEDSIDE REPORT FROM JOSE VO. PT IN BED, AWAKE, ALERT. DENIED NEEDS AT THIS TIME.
--- NOTE | 2017-12-10 07:53 | NUR ---
PATIENT U, WAITING FOR BREAKFAST, AM CARE DONE.
--- NOTE | 2017-12-10 08:06 | NUR ---
PT UP TO BEDSIDE COMMODE. VOIDED 300 CC URINE, AND PASSED GAS SEVERAL TIMES. THEN TO RECLINER USING FWW WITH 1 PERSON MINIMAL ASSIST. ASSISTED PT IN ORDERING BREAKFAST. CRYO CUFF TO LEFT HIP. ASSISTED PT IN CLEANSING UPPER DENTURE, THEN PT INSERTED DENTURE. PT GIVEN WARM WASHCLOTH TO WASH FACE. DENIED OTHER NEEDS AT THIS TIME. REPORTED PAIN TO LEFT HIP IS WELL CONTROLLED AT THIS TIME.
--- NOTE | 2017-12-10 08:46 | NUR ---
PATIENT DID NOT LIKE HER BREAKFAST, SO I ORDERED HER A YOGURT, OUR PLAN IS TO GET A BED BATH IN AFTER SHE EATS THAT.
--- NOTE | 2017-12-10 09:49 | NUR ---
PT REPORTED 9/10 PAIN TO LEFT HIP. GAVE NUCYNTA 75 MG PO PRN. PT DENIED OTHER NEEDS AT THIS TIME.
--- NOTE | 2017-12-10 11:47 | NUR ---
GAVE PT TORADOL PRN FOR C/O 04/01 PAIN. PT DENIED OTHER NEEDS.
--- NOTE | 2017-12-10 12:46 | NUR ---
PT UP TO BATHROOM FROM RECLINER, VOIDED 100 CC URINE. THEN TO BED PER PT REQUEST. PT USED TUCKS PAD PRN.
--- NOTE | 2017-12-10 15:11 | NUR ---
PT IN BED. DENIED NEEDS AT THIS TIME.
--- NOTE | 2017-12-10 18:14 | NUR ---
PT UP WITH 1 PERSON ASSIST WITH FWW. AMBULATED IN [place]RICK WITH PHYSICAL THERAPY. TOOK PRN NUCYNTA AND TORADOL FOR PAIN TO LEFT HIP. URINE OUTPUT QUANTITY SUFFICIENT. HRR, LUNGS CTA, BOWEL TONES ACTIVE. LAST RECORDED BM WAS 12/09/17.
--- NOTE | 2017-12-10 18:47 | NUR ---
PT C/O 04/01 PAIN TO LEFT HIP. GAVE NUCYNTA 75 MG PO PRN. PT DENIED OTHER NEEDS. ATE APROXIMATELY 50% OF DINNER. TOLERATED WELL.
--- NOTE | 2017-12-10 19:12 | NUR ---
PT IS AWAKE IN BED, IN ROOM FOR REPORT. PT DENIES NEEDS AT THIS TIME.
--- NOTE | 2017-12-10 20:35 | NUR ---
PT ASSESSMENT COMPLETE, HELPED HER TO RESTROOM AND GAVE ANUSOL SUPPOSITORY. DRESSING ON LEFT HIP IS CDI WITH BRUISING NOTED BELOW. PT STATES SHE HAS A "LITTLE PAIN" WHICH SHE RATES 6/10 AND DENIES NEEDING PAIN MEDICINE AT THIS TIME. PT IS BACK IN BED WITH AES AND SCDS IN PLACE, PT REFUSED HEEL PROTECTORS. PT STATES SHE BUMPED HER IV IN LEFT HAND EARLIER AND IT CAME OUT. PT'S IV IN LEFT AC FLUSED WELL. PT IS AMBULATING WELL WITH 1PA. VS STABLE AND PT DENIES FURTHER NEEDS. CALL LIGHT IS WITHIN REACH AND CYROCUFF IS IN PLACE.
--- NOTE | 2017-12-10 22:40 | NUR ---
PT IS RESTING WITH EYES CLOSED, RESPIRATIONS EVEN AND NONLABORED. CALL LIGHT IS WITHIN REACH.
--- NOTE | 2017-12-11 00:31 | NUR ---
HELPED PT TO RESTROOM AND BACK TO BED, NUCYNTA AND MELATONIN GIVEN. PT DENIES FURTHER NEEDS.
--- NOTE | 2017-12-11 03:36 | NUR ---
PT IS RESTING WITH EYES CLOSED, RESPIRATIONS EVEN AND NONLABORED, CALL LIGHT IS WITHIN REACH.
--- NOTE | 2017-12-11 05:03 | NUR ---
PT HAD A GOOD NIGHT BUT DID NOT SLEEP MUCH SHE WOULD HAVE LIKED. HER PAIN IS UNDER CONTROL WITH NUCYNTA. SHE HAD MELATONIN TO HELP HER SLEEP. PT IS AMBULATING WELL TO BATHROOM 1PA WITH WALKER. ANUSOL SUPOSITORY GIVEN HS AND TUCKS PADS AVAILABLE IF NEEDED. DRESSING ON LEFT HIP IS CDI AND BRUISING NOTED.
--- NOTE | 2017-12-11 07:02 | NUR ---
PT IN BED. RECIEVED BEDSIDE REPORT FROM JOSE VO. PT AWAKE, ALERT. PERSONAL SUPPLIES IN REACH, CALL LIGHT IN REACH.
--- NOTE | 2017-12-11 07:49 | NUR ---
PT ASSISTED TO REPOSITION IN BED. SITTING UPRIGHT, EATING BREAKFAST. REPORTED PAIN TO LEFT HIP 3/10. GAVE NUCYNTA 75 MG PO PRN. PT HAS PERSONAL SUPPLIES AND CALL BUTTON IN REACH. DENIED OTHER NEEDS.
--- NOTE | 2017-12-11 08:52 | NUR ---
PT UP TO RECLINER WITH ASSISTANCE FROM RACING SECRETARY AND HANDICAPPER. LEGS ELEVATED, CRYO CUFF IN PLACE TO LEFT HIP. PT REPORTED THAT PAIN LEVEL INCREASED WITH TRANSFER TO RECLINER, BUT IS SUBSIDING NOW THAT SHE IS AT REST IN CHAIR, RATED PAIN TO LEFT HIP 4/10. PERSONAL SUPPLIES AND CALL BUTTON IN REACH.
[2017-12-11] MEDS ORDERED: SERTRALINE HCL25 MG PO (15:34)
[2017-12-20] MEDS ORDERED: XARELTO10 MG PO (11:58)
== END 2017-12-11 10:15 | disposition swing bed (61) | DRG 470 ==
LOC: ED 17:28 → MS 19:40
PROVIDERS: ADMIT Specialist
PROC: 0SRS0JA Replacement of Left Hip Joint, Femoral Surface with Synthetic Substitute, Uncemented, Open Approach (ICD-10-PCS; principal; 2017-12-07 16:00)
DX: S72.042A Displaced fracture of base of neck of left femur, initial encounter for closed fracture (principal); W18.30XA Fall on same level, unspecified, initial encounter; Y92.59 Other trade areas as the place of occurrence of the external cause; G89.29 Other chronic pain; M54.5 Low back pain; I25.10 Atherosclerotic heart disease of native coronary artery without angina pectoris; I10 Essential (primary) hypertension; R11.2 Nausea with vomiting, unspecified; K59.00 Constipation, unspecified
CPT/HCPCS: 01214; 36415; 64447; 72170; 73502; 76942; 80048; 80053; 81001; 85025; 85610; 93005; 93010; 94762; 97110; 97116; 97162; 97530; C1776; G8978; G8979; J0690; J1100; J1170; J1885; J2250; J2274; J2405; J2704; J2795; J3010

== ENCOUNTER 2017-12-11 10:15 | Inpatient (IN) | payer MEDICARE, OTHER ==
[~2017-12-11] VITALS: Ht 162.6 cm; Wt 75.8 kg
--- OUTSIDE RECORDS SUMMARY | ~2017-12-11 | XMS ---
Demographics + + + | Address | [address] | | | [address] | | | [place] [address] | + + + | Preferred Language | Unknown | + + + | Marital Status | Unknown | + + + | Zoroastrian Affiliation | Unknown | + + + | Race | Unknown | + + + | Ethnic Group | Unknown | + + + Author + + + | Author | [facility] | + + + | Organization | [facility] | + + + | Address | [address] | | | [place] [address] | + + + | Phone | | + + + Care Team Providers + + + + | Care Garnett Mechanic Name | Role | Phone | + + + + Unavailable | Unavailable | + + + + PROBLEMS + + + + + + + + | Type | Condition | ICD9-CM | [id number] | Onset | Condition | SNOMED | | | | Code | Code | Dates | Status | Code | + + + + + + + + | Assessment | Constipati | | K59.00 | 03 Jan, | Active | [phone] | | | on | | | 2017 | | | + + + + + + + + | Problem | Hypertensi | I11.9 | | | Active | [phone] | | | ve | | | [...] | | I10 | | Active | [id number] | | | on | | | | | | + + + + + + + + | 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 | | | | | | + + + + + + + + | Assessment | Acute | M54.5 | | Jan, | Active | [phone] | | | right-side | | | 2016 | | | | | d low back | | | | | | | | pain | | | | | | | | without | | | | | | | | sciatica | | | | | | + + + + + + + + | Problem | Hyperchole | | E78.0 | | Active | [phone] | | | sterolemia | | | | | | + + + + + + + + | Problem | Fatigue | | R53.83 | | Active | 68872628 | + + + + + + + + ALLERGIES + + + + +--------+ | Substance | Reaction | Event Type | Date | Status | + + + + +--------+ | Lisinipril | cough | Drug Allergy | Jan, | Active | + + + + +--------+ | Morphine | stomach hurts | Drug Allergy | Jan, | Active | | Sulfate | | | | | + + + + +--------+ | Meloxicam | hives | Drug Allergy | Jan, | Active | + + + + +--------+ | Lipitor | muscle ache | Drug Allergy | Jan, | Active | + + + + +--------+ | Hydrochlorothia | nausea | Drug Allergy | Jan, | Active | | zide | | | | | + + + + +--------+ | Fosamax | Nausea | Drug Allergy | Jan, | Active | + + + + +--------+ SOCIAL HISTORY No smoking Hx information available PLAN OF CARE VITAL SIGNS + + + + | Height | 64 in | 2017-01-23 | + + + + | Weight | 163.8 lbs | 2017-01-23 | + + + + | BMI | 28.11 kg/m2 | 2017-01-23 | + + + + | Heart Rate | 76 /min | 2017-01-23 | + + + + | Blood pressure systolic | 158 mm Hg | 2017-01-23 | + + + + | Blood pressure diastolic | 59 mm Hg | 2017-01-23 | + + + + MEDICATIONS + + + + + + + +--------+ | Medicati | Instruct | Dosage | Frequenc | Start | End Date | Duration | Status | | on | ions | | y | Date | | | | + + + + + + + +--------+ | Cycloben | Orally | 1 tablet | 8h | 03 Jan, | 30 Sep, | 30 days | Active | | zaprine | Three | as | | 2016 | 2016 | | | | HCl 5 MG | times a | needed | | | | | | | | day | | | | | | | + + + + + + + +--------+ | Metoprol | | TAKE [...] + + + + + + + +--------+ | Krill | | | | | | | Active | | Oil | | | | | | | | | Rocheport-3 | | | | | | | | | 300 MG | | | | | | | | + + + + + + + +--------+ | Centrum | | | | | | | Active | | Silver | | | | | | | | | Adult | | | | | | | | | 50+ | | | | | | | | + + + + + + + +--------+ | Ocuvite | | | | | | | Active | | Adult | | | | | | | | | 50+ | | | | | | | | + + + + + + + +--------+ | Vitamin | Orally | 1 | 24h | | | | Active | | D 1000 | Once a | capsule | | | | | | | UNIT | day | | | | | | | + + + + + + + +--------+ | Aspirin | Orally | 1 tablet | 24h | | | 30 | Active | | 81 MG | Once a | | | | | day(s) | | | | day | | | | | | | + + + + + + + +--------+ RESULTS No Results PROCEDURES + + + + + | Procedure | Date Ordered | Related Diagnosis | Body Site | + + + + + | Est Level III | January 23, 2017 | | | | Intermediate | | | | + + + + + IMMUNIZATIONS No Known Immunizations"
[~2017-12-11 10:15] MED LIST changes: +VITAMIN B-12100 MCG PO
[2017-12-11] MEDS ORDERED: SERTRALINE HCL25 MG PO (15:34)
[2017-12-15] MEDS ORDERED: NORVASC5 MG PO (13:05)
--- NOTE | 2017-12-15 21:43 | EKG ---
[facility] [address] [facility] [place] [address] Signed Sinus rhythm with 1st degree AV block Possible Left atrial enlargement Left bundle branch block Abnormal ECG When compared with ECG of 06-DEC-2017 18:55, T wave inversion more evident in Inferior leads Confirmed by PRIMITIVO SUAREZ MD ([id number]) on 12/15/2017 9:43:33 PM Electronically Signed By: PRIMITIVO SUAREZ MD 12/15/17 2143 PATIENT NAME: KELVIN LIN Electrocardiogram DATE OF : [birth year] PHYSICIAN: PRIMITIVO SUAREZ MD REPORT #: [id number] REPORT IS CONFIDENTIAL AND NOT TO BE RELEASED WITHOUT AUTHORIZATION
--- NOTE | 2017-12-15 21:43 | EKG ---
[facility] [address] [facility] [place] [address] Signed Normal sinus rhythm Possible Left atrial enlargement Left bundle branch block Abnormal ECG When compared with ECG of 14-DEC-2017 01:54, (Unconfirmed) NV interval has decreased T wave inversion less evident in Inferior leads T wave inversion no longer evident in Lateral leads Confirmed by PRIMITIVO SUAREZ MD ([id number]) on 12/15/2017 9:43:39 PM Electronically Signed By: PRIMITIVO SUAREZ MD 12/15/17 2143 PATIENT NAME: KELVIN LIN Electrocardiogram DATE OF : [birth year] PHYSICIAN: PRIMITIVO SUAREZ MD REPORT #: [id number] REPORT IS CONFIDENTIAL AND NOT TO BE RELEASED WITHOUT AUTHORIZATION
[2017-12-20] MEDS ORDERED: XARELTO10 MG PO (11:58)
== END 2017-12-17 18:47 | disposition swing bed (61) | DRG 305 ==
LOC: MS 10:15 → CCU 12-17 18:47 → MS 12-17 18:47
PROVIDERS: ADMIT Specialist
DX: I16.0 Hypertensive urgency (principal); I25.110 Atherosclerotic heart disease of native coronary artery with unstable angina pectoris; Z96.642 Presence of left artificial hip joint; I44.0 Atrioventricular block, first degree
CPT/HCPCS: 36415; 73502; 80053; 82550; 83735; 84100; 84484; 85025; 93005; 93010; 93970; 94760; 97110; 97116; 97162; G8978; G8979; J0780; J7030

== ENCOUNTER 2017-12-17 18:47 | Inpatient (IN) | payer MEDICARE, OTHER ==
[~2017-12-17 18:47] MED LIST changes: +NORVASC5 MG PO; +SERTRALINE HCL25 MG PO
--- NOTE | 2017-12-17 20:10 | NUR ---
PT TO 129 FROM [place] ON HER BED AT 1855, REPORT GIVEN FROM MS NURSE TO SHEYLA RN, REPORT TO THIS RN RECEIVED FROM SHEYLA GARCIA. PT'S IS ACCOMPANIED BY SON, ISIDRO. PT IS ALERT AND ORIENTED, EYES CLOSED, APPEARS COMFORTABLE. DENIES PAIN AND NAUSEA AT THIS TIME. LUNGS CLEAR, 2L O2 PLACED BECAUSE WHILE PT IS SLEEPING SHE DESATURATES TO 88%. HR REGULAR. BOWEL TONES ACTIVE. SKIN APPEARS GROSSLY INTACT, LEFT HIP SURGICAL SITE IS COVERED WITH MEPILEX AND OPSITE THAT APPEARS C/D/I, CRYOCUFF IN PLACE. EDEMA NOTED TO BLE, 2+ IN RLE AND 3+ IN LLE. NUMBNESS IN FINGERTIPS IS BASELINE FOR PT. BILATERAL UPPER AND LOWER PERIPHERAL PULSES FEEL FAINT, CAP REFILL < 3 SECONDS. 20G IV IN RIGHT AC IS PATENT, INFUSING NS @ 100ML/HR. CALL LIGHT IS WITHIN REACH, PT DENIES NEEDS AT THIS TIME. LIGHTS DIMMED PER REQUEST, PT'S SON GOING HOME NOW.
--- NOTE | 2017-12-17 20:45 | NUR ---
AFTER PT'S SON LEFT, SHE WOKE UP MORE AND STARTED COMPLAINING OF 8/10 PAIN IN LEFT HIP ALONG WITH PAIN IN FINGERS STATING THEY "FEEL TIGHT." PT APPEARS VERY ANXIOUS ENCOURAGED HER TO TAKE DEEP BREATHS AND TO TRY AND RELAX. 50MG PO NUCYNTA ADMINISTERED. PT STATES "GET THOSE THINGS OFF MY LEGS" SCD'S OFF LEGS FOR NOW, REMOVED MULTIPLE EXTRA BLANKETS AND BROUGHT HER A NEW WARM BLANKET. ELEVATED ARMS ON PILLOWS. COLD CLOTH PLACED ON FOREHEAD. MELATONIN ADMINISTERED. PT APPEARS TO START CALMING DOWN, WILL CONTINUE TO MONITOR.
--- NOTE | 2017-12-17 22:13 | NUR ---
PT APPEARS TO BE SLEEPING, NO APPARENT DISTRESS. RR:13, SPO2: 96% ON 2L. HR:96.
--- NOTE | 2017-12-18 00:13 | NUR ---
RECEIVED CALL FROM DR. WHITE WHO WANTS IVF RATE DECREASED TO 50ML/HR; DONE AT THIS TIME.
--- NOTE | 2017-12-18 00:19 | NUR ---
PT SLEEPING AT THIS TIME, NO APPARENT DISTRESS. RESPIRATIONS EVEN AND UNLABORED, RR:16, SPO2 100% ON 2L O2 VIA NC. HR:68. CRYOCUFF REMAINS IN PLACE. WILL ALLOW FOR REST AND CONTINUE TO MONITOR.
--- NOTE | 2017-12-18 01:47 | NUR ---
PT UP WITH EFFICIENCY ANALYST, SBA/FWW TO BSC, VOIDED 600ML AND RETURNED TO BED.
--- NOTE | 2017-12-18 02:26 | NUR ---
PT APPEARS TO BE SLEEPING AT THIS TIME, NO APPARENT DISTRESS. RR:14, SPO2:99% ON 2L O2 VIA NC. HR:76. RESPIRATIONS EVEN AND UNLABORED. IVF INFUSING WNL. WILL ALLOW FOR REST AND CONTINUE TO MONITOR.
--- NOTE | 2017-12-18 03:51 | NUR ---
PT CALLED AND REQUESTED TO USE BATHROOM, UP WITH SBA AND FWW TO BS, VOIDED 200ML THEN RETURNED TO BED. ASSESSMENT COMPLETED. PT ALERT/ORIENTED. DENIES PAIN AT THIS TIME. LUNGS REMAIN CLEAR, 2L O2 VIA NC IN PLACE. HR REGULAR. BOWEL TONES ACTIVE, DENIES NAUSEA. DRESSING TO LEFT HIP C/D/I, NEW ICE IN CRYOCUFF, DEPENDENT EDEMA NOTED TO LEFT HIP, 3+ IN RLE, 2+ IN LLE. BRUISE NOTED ON MEDIAL AND LATERAL ASPECTS OF POSTERIOR LEFT THIGH THAT EXTEND FROM HIP TO KNEE. SMALL SCATTERED BRUISES NOTED ON BILATERAL ARMS. PT APPEARS RELAXED, DENIES NEEDS. IV PATENT, INFUSING NS @50ML/HR. PT REFUSES TO WEAR HEEL PROTECTORS AND SCD'S AT THIS TIME. CALL LIGHT IS WITHIN REACH, WILL CONTINUE TO MONITOR.
--- NOTE | 2017-12-18 04:18 | NUR ---
PT PROVIDED WITH YOGURT AND FRESH ICE WATER PER REQUEST.
--- NOTE | 2017-12-18 06:08 | NUR ---
PT CALLED AND REQUESTED TO GO TO BATHROOM. UP WITH SBA AND FWW TO [facility] [place]. HAD LARGE YELLOW COLORED BM MIXED WITH LARGE AMOUNT OF URINE. RETURNED TO BED. PT AGREEABLE TO WEARING SCD'S AND HEEL PROTECTORS AT THIS TIME. CALL LIGHT WITHIN REACH. WILL CONTINUE TO MONITOR.
--- NOTE | 2017-12-18 06:58 | NUR ---
RECEIVED CRITICAL LAB VALUE FROM [facility]. PT'S SODIUM WAS 119, DR. WHITE NOTIFIED, SHE WAS ALREADY AWARE AND HAD CHANGED PT'S IVF ORDER TO INCREASE RATE TO 100ML/HR. RATE INCREASED AT THIS TIME.
--- NOTE | 2017-12-18 09:02 | NUR ---
PATIENT UP TO COMMODE FIRST, AND THEN SITS IN CHAIR FOR BREAKFAST. PT WANTING TO GO BACK TO BED ALMOST IMMEDIATELY AFTER BREAKFAST. ASKED PATIENT TO STAY UP IN CHAIR LONGER BUT DOESN'T WANT TO. DR. ANDERSON IN TO SEE PATIENT THIS AM. NEXT SODIUM LEVEL AT 1400.
--- NOTE | 2017-12-18 09:25 | NUR ---
PHYSICAL THERAPY IN ROOM WORKING WITH PATIENT AT THIS TIME. PT DID NOT WANT TO SIT IN CHAIR ANY LONGER THIS AM. CONTINUE TO MONITOR.
--- NOTE | 2017-12-18 09:46 | NUR ---
PATIENT RESTING IN BED NOW AFTER WORKING WITH PHYS THERAPY. PT'S SON LILIAN IN ROOM WITH PATIENT. PT REQUESTING SOME TEA AT THIS TIME. HR IN THE 80s AT THIS TIME. PT HAS BEEN ALERT, ORIENTED AND APPROPRIATE ALL MORNING AND HAS HAD NO FURTHER COMPLAINTS OR DISORIENTATION.
--- NOTE | 2017-12-18 10:53 | NUR ---
PATIENT HELPED WITH PREPARATION H AND HELPED TO COMMODE TO VOID. PT NOW RESTING IN BED WITH CRYO CUFF ON. CALL LIGHT WITHIN REACH.
--- NOTE | 2017-12-18 14:51 | NUR ---
LAB IN TO DRAW 1400 BLOOD DRAW AT THIS TIME. PT UP TO COMMODE TO VOID AGAIN. CONTINUE TO MONITOR.
--- NOTE | 2017-12-18 19:30 | NUR ---
PT SHIFT REPORT RECIVED FROM DAY SHIFT RN. PT RESTING IN BED WITH VISITOR AT BEDSIDE. PT HAD A GOOD DAY PER DAY SHIFT RN AND PT. WILL CONTINUE TO CLOSELY MONITOR AT THIS TIME.
--- NOTE | 2017-12-18 20:30 | NUR ---
PT RESTING IN BED. ASSESSMENT COMPLETED. PT BREATH SOUNDS CLEAR. BOWEL TONES ACTIVE. SCD'S IN PLACE. HEEL PROTECTORS ON. CRYOCUFF ON LEFT HIP. DRESSING IS C/D/I. BRUISING NOTED TO LEFT HIP. PT DENIES PAIN. WILL CONTINUE TO CLOSELY MONITOR.
--- NOTE | 2017-12-18 21:00 | NUR ---
PT ASSISTED UP TO THE CAMMODE WITH A FWW. PT TOELRATED WELL. ASSISTED BACK TO BED. CALL LIGHT IN HAND. NO OTHER ISSUES AT THIS TIME. WILL CONTINUE TO CLOSELY MONITOR.
--- NOTE | 2017-12-18 23:11 | NUR ---
PT RESTING WELL AT THIS TIME. WILL CONTINUE TO ENCOURAGE REST. WILL CONTINUE TO MONITOR.
--- NOTE | 2017-12-19 00:17 | NUR ---
PT ASSESSMENT AND VITALS COMPLETED. PT RESTING WELL AT THIS TIME. ASSESSMENT REMAINS UNCHANGED FROM PRIOR ASSESSMENT. WILL CONTINUE TO CLOSELY MONITOR.
--- NOTE | 2017-12-19 02:45 | NUR ---
OTHER RN IN TO ASSIST PT TO BEDSIDE CAMMODE. THIS RN ASSISTED PT ONCE BACK TO BED. PLACED SCD'S BACK ON. FILLED CRYOCUFF WITH FRESH ICE. NO OTHER ISSUES AT THIS TIME. WILL CONTINUE TO CLOSELY MONITOR.
--- NOTE | 2017-12-19 03:15 | NUR ---
PT CALLED TO HAVE CRYOCUFF ADJUSTED ON LEG/HIP. PT TOLERATED WELL. FRESH WARM BLANKET PLACED ON PT. PT DENIES ANY OTHER ISSUES AT THIS TIME. CALL LIGHT IN REACH. WILL CONTINUE TO CLSOELY MONITOR.
--- NOTE | 2017-12-19 06:00 | NUR ---
LAB IN TO DRAW LABS FROM PT THIS AM WITH NO ISSUES. VITAL SIGNS TAKEN. PT RESTING IN BED AT THIS TIME. WILL CONTINUE TO CLOSELY MONITOR.
--- NOTE | 2017-12-19 07:48 | NUR ---
PT SITTING UP IN CHAIR, FINSIHED BREAKFAST. PT STATES "I WANT TO GET BACK TO BED".
--- NOTE | 2017-12-19 08:12 | NUR ---
PT UP TO BATHROOM TO VOID, AMBULATES WITH WALKER AND STAND BY ASSIST. PT ABLE TO WASH HANDS, BRUSH TEETH AND UPPER PARTIAL. PT AMBULATED BACK TO BED. IV SITE IN RT AC DC'D PER APPROVAL AND PT REQUEST. PT ALERT AND ORIENTED X4, WELL ABLE TO COMMUNICATE NEEDS AND DESIRES. VITALS WNL.
--- NOTE | 2017-12-19 12:02 | NUR ---
PATIENT ARRIVED TO ROOM 124 AT 1150. PATIENT DENIES PAIN, IS ORDERING HER OWN LUNCH. PATIENT ENDORSES WANTING A SHOWER, SAYS , "I'VE ONLY HAD ONE SHOWER SINCE I'VE BEE HERE." PLAN TO LOOK INTO DOCUMENTATIONS, PATIENT IS OCCASIONALLY CONFUSED, UNABLE TO DIAL PHONE BY HERSELF. VITALS ARE STABLE. LEFT HIP DRESSING IS CDI, CRYO APPLIED WITH TOWEL BETWEEN PATIENT AND COLD DEVICE. ASSESSMENT DONE.
[2017-12-20] MEDS ORDERED: XARELTO10 MG PO (11:58)
== END 2017-12-19 12:20 | disposition swing bed (61) | DRG 641 ==
LOC: CCU 18:47
PROVIDERS: ADMIT Internal Medicine
DX: E87.1 Hypo-osmolality and hyponatremia (principal); G89.29 Other chronic pain; M54.5 Low back pain; Z96.642 Presence of left artificial hip joint; I10 Essential (primary) hypertension; F41.9 Anxiety disorder, unspecified; I25.10 Atherosclerotic heart disease of native coronary artery without angina pectoris; M19.90 Unspecified osteoarthritis, unspecified site; Z79.82 Long term (current) use of aspirin
CPT/HCPCS: 36415; 80048; 97110; 97116; 97162; 97165; J7030